=== PATIENT | male | born 1995 | race Caucasian/White ===

== ENCOUNTER 2021-04-29 01:55 | Emergency (ER) | payer BC, SELFPAY ==
[2021-04-29 01:56] VITALS: TEMP 36.4; BMI 23.3
[2021-04-29 01:59] VITALS: BP 128/87; PULSE 86; RESP 17; TEMP 36.4; O2SAT 97
--- NOTE | 2021-04-29 02:07 | EDS_ITS ---
HPI History of Present Illness Chief Complaint: Nausea/Vomiting/Diarrhea Detail of Chief Complaint: Nausea, vomiting, and diarrhea that started approximately 6 hours ago. Informant: patient Narrative Narrative: Patient presents to the emergency department with frequent vomiting and diarrhea for the last 6 hours. Patient states that he ate [place] food that was in the fridge for about 3 days and about an hour later started getting sick. Patient describes chills and sweats. He describes abdominal cramping. Patient denies any Covid exposures. He denies sick contacts otherwise. Patient denies urinary symptoms. Prior similar symptoms: No PFSH PFSH Home Medications NK 04/29/21 [History Last Taken Unknown] dicyclomine 20 mg PO TID PRN #14 tab 04/29/21 [Rx Last Taken Unknown] ondansetron 4 mg PO Q8H PRN PRN #10 tab 04/29/21 [Rx Last Taken Unknown] Allergy/AdvReac Type Severity Reaction Status Date / Time No Known Allergies Allergy Verified 04/29/21 02:01 Social History Smoking Status: Current every day smoker tobacco type: e-cigarettes ROS ROS ED Constitutional Constitutional ED: Reports systems reviewed and no addt'l complaints, except as documented; Denies body ache(s), change in weight or chills Eyes Eyes: Denies acute decrease in peripheral vision, change in vision, double vision or loss of vision ENT ENT ED: Reports none; Denies ear pain, lip swelling, loss taste/smell, neck pain, otalgia or sore throat Cardiovascular Cardiovascular: Reports none; Denies abdominal pain, chest pain with activity, leg edema, lightheadedness, palpitations, rapid heart rate or syncope Respiratory/Chest Respiratory/Chest: Reports none; Denies change in mental status, dry cough, d yspnea, hemoptysis, shortness of breath at rest or shortness of breath with exertion Gastrointestinal Gastrointestinal: Reports none, abdominal pain, diarrhea, nausea and vomiting; Denies change in stool character, hematemesis, hematochezia, melena or rectal bleeding Genitourinary Genitourinary ED: Reports none; Denies abdominal discomfort, anuria, dysuria, genital pain or polyuria Musculoskeletal Musculoskeletal: Reports none; Denies arthralgias, back pain, difficulty walking, extremity pain, muscle weakness or myalgias Integumentary Reports none; Denies abscess or rash Neurologic Neurologic: Reports none; Denies abnormal gait, confusion, focal weakness, frequent falls, headache(s), loss of vision, numbness, paresthesias, radicular pain, vertigo or weakness Psychiatric Psychiatric: Reports systems reviewed and no addt'l complaints, except as documented and none; Denies behavioral changes, confusion, difficulty concentrating, hallucinations, suicidal ideation, tactile hallucinations or visual hallucinations Endocrine Endocrinology: Denies none, cold intolerance, excessive sweating, fatigue or heat intolerance Hematologic/Lymphatic Hematologic/Lymphatic: Reports none; Denies anemia, easy bleeding or easy bruising Allergic/Immunologic Allergic/Immunologic ED: Denies as per HPI, none, lip swelling, mouth swelling, throat swelling, tongue swelling or hives EXAM Physical Exam Const Vital Signs: 04/29/21 01:56 04/29/21 01:59 04/29/21 03:15 Temperature 97.6 F L 97.6 F L 98.7 F Temperature Source Temporal Temporal Temporal Pulse Rate 86 78 Respiratory Rate 17 16 Blood Pressure 128/87 H 110/73 Blood Pressure Mean 100 85 Pulse Ox 97 100 Oxygen Delivery Method Room Air Room Air Room Air Positive well nourished and well developed General Appearance ED: well developed and NAD HEENT Reports TM's clear and moist mucous membranes normocephalic and atraumatic; Negative for trauma or tenderness Tympanic Membrane ED: Yes TM's clear Eyes PERRL and EOMs intact bilaterally General Eye ED: Negative for pale conjunctiva or scleral icterus Neck no lymphadenopathy, supple and no JVD General: Negative for tenderness Chest Wall inspection of chest normal and palpation of chest normal Chest: Negative for tenderness Resp normal respiratory effort and clear to auscultation bilaterally Effort and Inspection: Negative for respiratory distress or pain with movement Auscultation: Negative for rhonchi, wheezes or diminished lung sounds Cardio regular rate, regular rhythm, S1 normal heart sound, S2 normal heart sound and no murmurs Peripheral Pulses: pulses 2+ throughout GI normal to inspection, nondistended, normoactive bowel sounds, soft to palpation, non-tender, non-distended and no masses GI Narrative: Mild diffuse tenderness on exam. There is no rebound, rigidity, or peritoneal signs. No guarding Back/Spine no CVA tenderness and no thoracic nor lumbar tenderness Extremity normal to inspection General Extremety ED: Negative for edema General Extremity: Negative for edema Neuro oriented x3, CN's II-XII intact bilaterally, no sensory deficits noted and gait normal Sensorium / Orientation: awake, alert, oriented to person, oriented to place and oriented to time Motor Exam: strength 5/5 throughout and strength abnormal Psych mental status grossly normal Skin no rashes or lesions noted and no wounds MDM MDM MDM Narrative Medical decision making narrative: IV line established on arrival. Patient received a liter normal same fluid bolus as well as Bentyl 20 mg IM as well as Imodium 4 mg and Zofran 4 mg IV. Patient was given a second liter of fluid. He felt markedly improved after treatment. He does have an elevated white count of 20,000 which I suspect is likely reactive from vomiting. I suspect he likely has a viral gastroenteritis. Patient will be given a prescription for Zofran and Bentyl. He is to use Imodium as needed for the diarrhea. Patient to push fluids. He is to return if persistent vomiting, diarrhea, dehydration, abdominal pain, or condition worsen anyway. Patient to follow-up with primary care physician in 3 to 5 days. Lab Data Attestation: I reviewed the patient's lab results. Labs: Laboratory Results - last 24 hr 04/29/21 04/29/21 02:20 02:20 WBC 20.5 H RBC 6.05 Hgb 19.2 H* Hct 56.6 H MCV 93.6 MCH 31.7 MCHC 33.9 RDW Std Deviation 44.9 H RDW Coeff of Christal 12.9 Plt Count 275 MPV 9.1 Immature Gran % (Auto) 0.400 Neut % (Auto) 87.3 H Lymph % (Auto) 2.2 L Dixie % (Auto) 7.5 Eos % (Auto) 2.0 Baso % (Auto) 0.6 Absolute Neuts (auto) 17.9 H Absolute Lymphs (auto) 0.45 L Nucleated RBC % 0 Differential Comment SCANNED Diff Path Review May foll Sodium 135 L Potassium 4.7 Chloride 102 Carbon Dioxide 25.0 Anion Gap 8 BUN 23 H Creatinine 1.46 H Estim Creat Clear Calc 71.68 Est GFR (MDRD) Af Amer 75 Est GFR (MDRD) Non-Af 62 BUN/Creatinine Ratio 15.8 Glucose 137 H Calcium 10.2 H Discharge Plan Triage Chief Complaint: Nausea/Vomiting/Diarrhea ED Provider: Azalia Hurst Dx/Rx/DC Orders Clinical Impression: Viral gastroenteritis Instructions: ED Gastroenteritis, Viral (Adult) Prescriptions: New ondansetron [ondansetron] 4 MG tablet 4 mg PO Q8H PRN PRN (Reason: Nausea) Qty: 10 RF: 0 dicyclomine 20 mg tablet 20 mg PO TID PRN (Reason: cramps) Qty: 14 RF: 0 No Action NK RF: 0 Primary Care Provider: Care Physician,No Primary Referrals: Fast,Rut, DO [NON-STAFF] - 3-5 Days Care Physician,No Primary [Primary Care Provider] - Disposition Disposition: Home, Self Care
[2021-04-29 02:25] LABS: Absolute Lymphocyte Count 0.45 X10^3/uL (0.83-4.51); Absolute Neutrophil Count 17.9 X10^3/uL (2.0-7.7); Basophil# 0.13 X10^3/uL; Basophil% 0.6 % (0-1); Lymphocyte # 0.45 X10^3/ul (0.83-4.51); Lymphocyte % 2.2 % (19-41); Mean Corp Hgb Conc 33.9 g/dL (32-36); Mean Corpuscular Hgb 31.7 pg (27.0-32.0); Mean Corpuscular Volume 93.6 fL (80-94); Mean Platelet Vol. 9.1 fl (6.2-12.0); Monocyte# 1.53 X10^3/uL; Monocyte% 7.5 % (0-10); NRBC Flagged by Analyzer 0 % (0-5); Neutrophil # 17.88 X10^3/uL (2.7-7.7); Neutrophil % 87.3 % (47-70); POSITIVE DIFFERENTIAL YES; Platelet Count 275 K/mm3 (150-450); RBC Distribution Width CV 12.9 % (11.6-14.6); RBC Distribution Width SD 44.9 fl (35.1-43.9); Red Blood Count 6.05 M/mm3 (4.6-6.2); White Blood Count 20.5 K/mm3 (4.4-11.0)
[2021-04-29 02:28] LABS: Hematocrit 56.6 % (40-54)
[2021-04-29] MEDS: Ondansetron 4 MG/2 ML Vial IV (02:29)
[2021-04-29] MEDS: Loperamide 2 MG Capsule 4 MG PO (02:29)
[2021-04-29] MEDS: 0.9% Normal Saline 1,000 ML 1000 ML IV (02:29)
[2021-04-29 02:32] LABS: Differential Indicated SCAN CRITERIA MET; Hemoglobin 19.2 g/dL (13.0-16.5)
[2021-04-29] MEDS: Dicyclomine 20 MG/2 ML Vial IM (02:33)
[2021-04-29 02:38] LABS: Anion Gap 8 (5-15); BUN 23 mg/dL (7-18); BUN/Creat Ratio 15.8 RATIO (10-20); Calcium,Total 10.2 mg/dL (8.5-10.1); Chloride 102 mmol/L (98-107); Creatinine, Serum 1.46 mg/dL (0.70-1.30); EST Glomerular Filtration Rate 62 mL/min (>60); Est Glom Filt Rate - Afr Amer 75 mL/min (>60); Estimated Creatinine Clearance 71.68 ml/min; Glucose 137 mg/dL (74-106); Potassium 4.7 mmol/L (3.5-5.1); Sodium Level 135 mmol/L (136-145)
[2021-04-29 03:08] LABS: Differential Comment SCANNED
[2021-04-29 03:15] VITALS: BP 110/73; PULSE 78; RESP 16; TEMP 37.1; O2SAT 100
[2021-04-29] MEDS: 0.9% Normal Saline 1,000 ML 999 ML IV (03:15)
[2021-04-29 04:00] VITALS: BP 121/74; BP 124/71; PULSE 74; RESP 16; O2SAT 98
[2021-04-30 14:10] LABS: Pathologist Review Reviewed
== END 2021-04-29 04:22 | disposition home or self-care (01) ==
PROVIDERS: Emergency Provider Emergency Medicine; Visit Provider Emergency Medicine
DX: A08.4 Viral intestinal infection, unspecified (principal); D72.829 Elevated white blood cell count, unspecified; F17.290 Nicotine dependence, other tobacco product, uncomplicated; Z79.899 Other long term (current) drug therapy
CPT/HCPCS: 80048; 85025; 96361; 96372; 96374; 99283; J7030; A4216; J2405